=== PATIENT | female | born 1985 ===

== ENCOUNTER 2017-03-20 00:36 | Emergency (ER) | payer BC ==
[2017-03-20 00:36] VITALS: BMI 19.5
[2017-03-20 01:36] LABS: BASO % 0.4 % (0.0-2.0); EOS # 0.4 K/uL (0.0-0.7); HEMATOCRIT 33.9 % (34.0-47.0); LYMPH # 2.6 K/uL (1.0-4.3); LYMPH % 34.7 % (20.0-40.0); MEAN CELL VOLUME 76.6 fL (81.0-99.0); MEAN CORPUSCULAR HEMOGLOBIN 25.2 pg (27.0-31.0); MEAN PLATELET VOLUME 7.2 fL (7.2-11.7); MONO # 0.3 K/uL (0.0-0.8); MONO % 4.1 % (0.0-10.0); WHITE BLOOD COUNT 7.4 K/uL (4.8-10.8)
[2017-03-20 01:46] LABS: RBC URINE 11 /hpf (0-3); URINE BACTERIA MOD (<OCC); URINE BILIRUBIN NEGATIVE (NEGATIVE); URINE BLOOD 1+ (NEGATIVE); URINE COLOR Yellow (YELLOW); URINE GLUCOSE (UA) NORMAL (Normal); URINE KETONE NEGATIVE (NEGATIVE); URINE LEUKOCYTE ESTERASE NEG Leu/uL (Negative); URINE PROTEIN NEGATIVE (NEGATIVE); URINE UROBILINOGEN NORMAL mg/dL (0.2-1.0); WBC URINE 13 /hpf (0-5)
[2017-03-20 01:48] LABS: ALB/GLOB RATIO 1.4 (1.0-2.1); ALKALINE PHOSPHATASE 62 U/L (38-126); ALT/SGPT 32 U/L (9-52); AST/SGOT 18 U/L (14-36); BILIRUBIN,TOTAL 1.6 mg/dL (0.2-1.3); BLOOD UREA NITROGEN 13 mg/dL (7-17); CALCIUM 8.5 mg/dl (8.6-10.4); CARBON DIOXIDE 22 mmol/L (22-30); CHLORIDE 102 mmol/L (98-107); GFR AFRICAN-AMERICAN > 60; GLUCOSE,RANDOM 83 mg/dL (65-105); POTASSIUM 3.6 mmol/L (3.6-5.2); SODIUM 134 mmol/L (132-148); TOTAL PROTEIN 7.9 g/dL (6.3-8.3)
--- NOTE | 2017-03-20 02:01 | C.PDOC ---
History Of Present Illness 31 y/o female with PMHx panic attack and anxiety presents to ED with complaints of feeling anxious. Patient states she feels like her heart raises causing her to breathe fast. Patient states she feels similar symptoms at work or when she gets in an argument. Patient saw PMD who put her on Lexipro but she states "I don't need it". Patient denies sob, chest pain or any other complaints at this time. Time Seen by Provider: 03/20/17 00:45 Chief Complaint (Nursing): ENT Problem History Per: Patient History/Exam Limitations: no limitations Onset/Duration Of Symptoms: Days Current Symptoms Are (Timing): Still Present Past Medical History Reviewed: Historical Data, Nursing Documentation, Vital Signs Vital Signs: Last Vital Signs Temp 98.2 F 03/20/17 02:45 Pulse 86 03/20/17 02:45 Resp 20 03/20/17 02:45 BP 120/82 03/20/17 02:45 Pulse Ox 98 03/20/17 02:45 - Medical History PMH: Anxiety, Asthma, Depression Surgical History: No Surg Hx Family History: States: No Known Family Hx - Social History Hx Tobacco Use: No Hx Alcohol Use: Yes Hx Substance Use: No - Immunization History Hx Tetanus Toxoid Vaccination: No Hx Influenza Vaccination: Yes Hx Pneumococcal Vaccination: No Review Of Systems Constitutional: Negative for: Fever, Chills ENT: Positive for: Nose Congestion Cardiovascular: Negative for: Chest Pain Respiratory: Negative for: Cough, Shortness of Breath Gastrointestinal: Negative for: Nausea, Vomiting Skin: Negative for: Rash Psych: Positive for: Anxiety. Negative for: Depression, Suicidal ideation Physical Exam - Physical Exam Appears: Non-toxic, No Acute Distress, Other (Anxious appearing; speaking in full sentences) Skin: Warm, Dry, No Rash Head: Atraumatic, Normacephalic Eye(s): bilateral: Normal Inspection, EOMI Nose: Normal Oral Mucosa: Moist Throat: Normal, No Erythema, No Exudate Neck: Normal ROM, Supple Chest: Symmetrical, No Tenderness Cardiovascular: Rhythm Regular Respiratory: Normal Breath Sounds, No Rales, No Rhonchi, No Wheezing Gastrointestinal/Abdominal: Soft, No Tenderness, No Guarding, No Rebound Extremity: Normal ROM Neurological/Psych: Oriented x3, Normal Speech ED Course And Treatment - Laboratory Results Result Diagrams: 03/20/17 01:33 03/20/17 01:33 ECG: Interpreted By Me, Viewed By Me ECG Rhythm: Sinus Rhythm Rate From EC O2 Sat by Pulse Oximetry: 99 (RA) Pulse Ox Interpretation: Normal - Radiology CXR: Interpreted by Me, Viewed By Me CXR Interpretation: Yes: No Acute Disease Progress Note: On re-evaluation, pt notes symptoms have improved. Notes h/o similar episodes in the past. No SI or Hi. Instruted follow up with PMD/ psychiatrist. Instructed to return to ER if symtpoms persist or worsen. CAse discussed with Dr Coats, agree dupon plan and discharge Disposition - Disposition Disposition: HOME/ ROUTINE Disposition Time: 02:25 Condition: STABLE Additional Instructions: Follow up with your doctor in 1-2 days. Return to ER if symptoms persist or worsen. Instructions: Upper Respiratory Infection (ED) Forms: [facility] (Sinhala) - Clinical Impression Clinical Impression: Anxiety - PA / IT RISK ANALYST / Resident Statement MD/DO has reviewed & agrees with the documentation as recorded. - Scribe Statement The provider has reviewed the documentation as recorded by the Brianibluma Gutierrez All medical record entries made by the Carmen were at my direction and personally dictated by me. I have reviewed the chart and agree that the record accurately reflects my personal performance of the history, physical exam, medical decision making, and the department course for this patient. I have also personally directed, reviewed, and agree with the discharge instructions and disposition.
[2017-03-20 02:18] LABS: THYROID STIMULATING HORMONE 1.77 mIU/L (0.46-4.68)
[2017-03-20 02:46] VITALS: BP 120/82; PULSE 86; RESP 20; TEMP 98.2
--- NOTE | 2017-03-20 08:41 | RAD ---
HISTORY: SOB COMPARISON: Chest radiograph from abdomen obstructive 03/17/2012. TECHNIQUE: Chest PA and lateral FINDINGS: LUNGS: No active pulmonary disease. PLEURA: No significant pleural effusion identified. No pneumothorax apparent. CARDIOVASCULAR: Normal. OSSEOUS STRUCTURES: No significant abnormalities. VISUALIZED UPPER ABDOMEN: Normal. OTHER FINDINGS: None. IMPRESSION: No interval acute cardiopulmonary disease appreciated.
--- NOTE | 2017-03-20 18:13 | CARD ---
APPROVED REPORT EKG Measurement Heart [id number] <Conclusion> Normal sinus rhythm Normal ECG
[2017-03-21 02:58] VITALS: O2SAT 99
== END 2017-03-20 03:10 | disposition home or self-care (01) ==
LOC: C.ER 00:36
DX: F41.9 Anxiety disorder, unspecified (principal)
CPT/HCPCS: 71020; 80053; 81001; 84443; 84703; 85025; 93005; 99283; G0480

== ENCOUNTER 2017-10-17 18:20 | Emergency (ER) | payer BC ==
[2017-10-17 18:21] VITALS: BMI 19.5
[2017-10-17 18:56] LABS: HCG,QUALITATIVE URINE POSITIVE (NEGATIVE)
[2017-10-17] MEDS ORDERED: Sodium Chloride 0.9% 1,000 ML IV STA (19:02)
[2017-10-17 19:03] LABS: SQUAMOUS EPITHIAL 3 /hpf (0-5); URINE BACTERIA OCC (<OCC); URINE BILIRUBIN NEGATIVE (NEGATIVE); URINE BLOOD 3+ (NEGATIVE); URINE CLARITY SLIGHT-CLOUDY (Clear); URINE COLOR Red (YELLOW); URINE GLUCOSE (UA) NORMAL (Normal); URINE LEUKOCYTE ESTERASE NEG Leu/uL (Negative); URINE PROTEIN 2+ mg/dL (NEGATIVE)
[2017-10-17 19:30] LABS: BASO # 0.1 K/uL (0.0-0.2); BASO % 1.6 % (0.0-2.0); EOS # 0.3 K/uL (0.0-0.7); EOS % 3.5 % (0.0-4.0); HEMOGLOBIN 11.8 g/dL (11.0-16.0); LYMPH % 28.2 % (20.0-40.0); MEAN CELL VOLUME 85.3 fL (81.0-99.0); MEAN CORPUSCULAR HEMOGLOBIN 29.4 pg (27.0-31.0); MEAN CORPUSCULAR HGB CONC 34.5 g/dL (33.0-37.0); MEAN PLATELET VOLUME 7.9 fL (7.2-11.7); MONO # 0.4 K/uL (0.0-0.8); MONO % 5.5 % (0.0-10.0); NEUT # 4.4 K/uL (1.8-7.0); NEUT % 61.2 % (50.0-75.0); NRBC % 0.1 % (0.0-2.0); RED CELL DISTRIBUTION WIDTH 14.4 % (11.5-14.5); WHITE BLOOD COUNT 7.3 K/uL (4.8-10.8)
[2017-10-17 19:42] LABS: ALB/GLOB RATIO 1.4 (1.0-2.1); ALBUMIN 4.1 g/dL (3.5-5.0); ALT/SGPT 26 U/L (9-52); AST/SGOT 17 U/L (14-36); BLOOD UREA NITROGEN 12 mg/dL (7-17); CALCIUM 8.6 mg/dl (8.6-10.4); GFR AFRICAN-AMERICAN > 60; GFR NON-AFRICAN AMERICAN > 60
[2017-10-17 21:32] VITALS: BP 107/63; PULSE 65; RESP 16; TEMP 98.6; O2SAT 98
--- NOTE | 2017-10-17 21:37 | US ---
EXAM: US , Transvaginal CLINICAL HISTORY: 32 years old, female; Signs and symptoms; Lmp or gestational age (in weeks): Unknown lmp; Other: Pain / bleeding; ; Additional info: Bleeding/pain, R/O ectopic TECHNIQUE: Real-time transvaginal obstetrical ultrasound of the maternal pelvis and a first trimester with image documentation. Transvaginal imaging was used for better evaluation of the fetus and adnexa. COMPARISON: No relevant prior studies available. FINDINGS: Gestation: There is a single intrauterine gestational sac. Sac measures 2.7 x 1.7 x 2.4 cm for a mean sac diameter of 2.3 cm for menstrual age of 6 weeks and 6 days. There is a new sac present. There is a pole with a crown-rump length measurement of 0.54cm for a menstrual age of 6 weeks and 2 days. cardiac activity was noted at a rate of 126 beats per minute. Placenta/amniotic fluid: There is a subchorionic fluid collection noted anterior to the gestational sac measuring 3.7 x 1 x 4.3 cm. Uterus/cervix: The uterus measures 11 x 6.7 x 8.2 cm. The cervix measures 3.5 cm in length and is closed at the time the examination. Ovaries: The right ovary measures 2.9 x 2 x 2.6 cm. Blood flow is seen in the right ovary on color Doppler examination. The left ovary measures 3.3 x 1.5 x 3.2 cm. Blood flow is seen in the left ovary on color Doppler examination. Free fluid: A small amount of free fluid is noted in the posterior cul-de-sac. IMPRESSION: 1. Single live intrauterine with an estimated menstrual age of 6 weeks and 2 days plus or -0 weeks and 3 days. Expected date of confinement 06/08/2018. 2. Small subchorionic fluid collection noted. EXAM: US Pelvis Complete, Transabdominal US Pelvis, Transvaginal US Duplex Arterial/Venous of the Pelvis, Complete EXAM DATE/TIME: Exam ordered 10/17/2017 7:03 PM CLINICAL HISTORY: 32 years old, female; Signs and symptoms; Lmp or gestational age (in weeks): Unknown lmp; Other: Pain / bleeding; ; Additional info: Bleeding/pain, R/O ectopic TECHNIQUE: Real-time transabdominal and transvaginal pelvic ultrasound (complete) with image documentation. Transvaginal imaging was used for better evaluation of the endometrium and adnexa. Real-time duplex ultrasound scan of the arterial and venous flow of the pelvis with color Doppler flow and spectral waveform analysis. COMPARISON: No relevant prior studies available. FINDINGS: Uterus/cervix: The uterus measures 11.4 x 7.1 x 8 cm. There is an intrauterine fluid collection measuring 2.1 x 2.2 x 2.8 cm. no yolk sac is seen. No pole is noted. The ovaries are not seen as separate structures. Bladder: The bladder is poorly distended which markedly limits visualization of the uterus and adnexa IMPRESSION: 1. Single intrauterine fluid collection confirmed to be a gestational sac on transvaginal ultrasound.. Please see the report of the transvaginal ultrasound done at same time for dating of and a description of a subchorionic fluid collection
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
== END 2017-10-17 22:02 | disposition home or self-care (01) ==
LOC: C.ER 18:20
DX: O20.0 Threatened abortion (principal); Z3A.01 Less than 8 weeks gestation of pregnancy
CPT/HCPCS: 76805; 76817; 80053; 81001; 84702; 84703; 85025; 86850; 86900; 87086; 87181; 96360; 99284; J7030

== ENCOUNTER 2018-01-25 10:46 | Emergency (ER) | payer BC ==
[2018-01-25 10:47] VITALS: BMI 19.5
[2018-01-25 11:03] VITALS: PULSE 88; O2SAT 98
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
[2018-01-25 12:19] LABS: SQUAMOUS EPITHIAL 3 /hpf (0-5); URINE BACTERIA RARE (<OCC); URINE BILIRUBIN NEGATIVE (NEGATIVE); URINE BLOOD 1+ (NEGATIVE); URINE CLARITY Clear (Clear); URINE COLOR Yellow (YELLOW); URINE GLUCOSE (UA) NORMAL (Normal); URINE LEUKOCYTE ESTERASE 1+ Leu/uL (Negative); URINE PROTEIN NEGATIVE (NEGATIVE); URINE UROBILINOGEN NORMAL mg/dL (0.2-1.0)
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
[2018-01-25 16:24] LABS: BARBITURATES, UR NEGATIVE (NEGATIVE); BENZODIAZEPINES, UR NEGATIVE (NEGATIVE); OPIATES, UR NEGATIVE (NEGATIVE); PHENCYCLIDINE, UR NEGATIVE (NEGATIVE)
--- NOTE | 2018-01-25 18:11 | OBDCSUM ---
Datetime: 01/25/2018 12:54 Follow up at, Provider: Dr. Granados Disch Instr Activity: Normal activity Disch Instr Diet: Regular Discharge Time: 01/25/2018 12:54 Follow up in weeks, Provider: appt on 01.28, per pt Contraception discussed, Prov: No Disch Activity Restrictions: No lifting Discharge Comment, Provider: Discharge Diagnosis Prov Other: without PNC No movement
[2018-01-25 20:47] VITALS: BP 108/62; RESP 20; TEMP 98.2
== END 2018-01-25 12:55 | disposition home or self-care (01) ==
LOC: C.ER 10:46 → C.EROB 10:46
DX: O36.8120 Decreased fetal movements, second trimester, not applicable or unspecified (principal); Z3A.21 21 weeks gestation of pregnancy
CPT/HCPCS: 76815; 81001; 99282; G0480

== ENCOUNTER 2018-05-04 17:37 | Emergency (ER) | payer BC ==
[2018-05-04 17:46] VITALS: BMI 31.8
[2018-05-04 17:52] VITALS: RESP 18; TEMP 97.9
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
[2018-05-04 21:31] VITALS: BP 128/75; PULSE 74
[2018-05-04 21:33] VITALS: O2SAT 99
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
== END 2018-05-04 21:30 | disposition home or self-care (01) ==
LOC: C.ER 17:37
DX: S09.90XA Unspecified injury of head, initial encounter (principal); Y04.0XXA Assault by unarmed brawl or fight, initial encounter; Z72.0 Tobacco use